=== PATIENT | female | born 1955 | race Caucasian/White ===

== ENCOUNTER 2017-07-01 10:14 | Observation (INO) | payer MEDICARE ==
[~2017-07-01] VITALS: Ht 167.6 cm; Wt 86.0 kg
[~2017-07-01 10:14] MED LIST: ACTONEL; ACTOS; ASPIR 8181 M1 PO; B-121000 MCG; BENADRYL25 M3 PO; CALCIUM600 MG; CYMBALTA20 M1 PO; CYMBALTA30 M1 PO; DILAUDID2 M1 PO; FOLIC ACID1 MG; GLIPIZIDE ER5 MG PO; JANUVIA100 MG; KEFLEX500 MG PO; LORAZEPAM2 M1 PO; METFORMIN HCL850 MG; NEURONTIN300 MG; NITROFURANTOIN100 M3 PO; OMEPRAZOLE40 M2 PO; POTASSIUM CHLO10 ME2 PO; PROTONIX40 M1 PO; SYNTHROID100 MC1 PO; SYNTHROID25 MCG; SYNTHROID88 MC1 PO; TIZANIDINE HCL2 M2 PO; TRIAMTERENE-HC1 EAC1 PO; ULTRAM50 MG PO; VALACYCLOVIR1000 M1; VITAMIN B-12250 MC2 PO; VITAMIN D; VITAMIN D1000 UNI1; VITAMIN D1000 UNI3 PO; VITAMIN D50000 UNI2 PO; VYTORIN; WELLBUTRIN XL150 MG; XANAX0.5 M1 PO; XANAX0.5 MG; [UNRECOGNIZED DRUG - OTHER] PO
[2017-07-01 10:57] LABS: BASO % 0.4 % (0-2); EOS % 0.6 % (0-7); EOSINOPHIL ABSOLUTE COUNT 0.1 tho/cmm (0.0-0.7); HGB-HEMOGLOBIN 11.5 gm/dl (12.0-15.5); IMMATURE GRANULOCYTES ABSOLUTE 0.02 tho/cmm (0-0.03); IMMATURE GRANULOCYTES PERCENT 0.2 % (0-0.3); LYMPH % 27.4 % (20-45); LYMPH ABSOLUTE COUNT 2.3 tho/cmm (0.8-4.5); MCH (MEAN CORPUSCULAR HGB) 34.4 pg (28.0-32.0); MCHC MEAN CORPUSCULAR HGB CONC 34.8 % (32.0-36.0); MCV (MEAN CELL VOLUME) 98.8 fl (82.0-96.0); MEAN PLATELET VOLUME 9.2 cmc (9.4-12.4); MONO % 10.9 % (0-12); MONOCYTE ABSOLUTE COUNT 0.9 tho/cmm (0.0-1.2); NEUTROPHIL ABSOLUTE COUNT 5.2 tho/cmm (1.6-8.0); NEUTROPHIL-AUTOMATED 5.2 tho/cmm (1.6-8.0); NEUTROPHILS % 60.5 % (40-80); PLATELET COUNT 154 tho/cmm (150-450); RED BLOOD COUNT 3.34 mil/cmm (4.00-5.20); RED CELL DISTRIBUTION WIDTH 15.4 % (12.4-16.4); WHITE BLOOD COUNT 8.5 tho/cmm (4.0-10.0)
[2017-07-01 11:03] LABS: INR 1.1 INR (0.9-1.1); PROTHROMBIN TIME 13.3 SECONDS (9.0-13.6)
[2017-07-01 11:11] LABS: ALB/GLOB RATIO 0.9 (0.8-2.0); ALBUMIN 3.2 g/dl (3.5-5.0); ALCOHOL (ETOH) 15 mg/dl (<10); ALKALINE PHOSPHATASE 108 U/L (33-138); ALT/SGPT 20 U/L (12-78); ANION GAP 15 mmol/L (0-20); AST/SGOT 20 U/L (10-40); BILIRUBIN,DIRECT 0.4 mg/dl (0.0-0.3); BILIRUBIN,INDIRECT 0.7 mg/dL (0.0-1.0); BILIRUBIN,TOTAL 1.1 mg/dl (0-1.5); BLOOD UREA NITROGEN 8 mg/dl (6-24); CALCIUM 8.6 mg/dl (8.5-10.5); CARBON DIOXIDE-VENOUS 27 mmol/L (22-32); CHLORIDE 91 mmol/l (96-110); CREATININE 0.82 mg/dl (0.50-1.10); GLUCOSE 325 mg/dL (70-110); LIPASE 88 U/L (73-393); MAGNESIUM 1.5 mg/dl (1.8-2.6); POTASSIUM 3.6 mmol/L (3.7-5.1); SODIUM 129 mmol/L (135-145); eGFR VALUE FOR BLACK >90 mL/Min
[2017-07-01] MEDS ORDERED: LIDODERM1 EACH TD (11:20)
[2017-07-01] MEDS ORDERED: XANAX0.5 M1 PO (11:20)
[2017-07-01] MEDS ORDERED: TIZANIDINE HCL2 M2 PO (11:20)
[2017-07-01] MEDS ORDERED: POTASSIUM CHLO10 ME2 PO (11:57)
[2017-07-01 14:33] LABS: TSH-THYROID STIMULATING HORM. 1.72 uIU/ml (0.40-3.80)
[2017-07-01 14:42] LABS: ANION GAP 10 mmol/L (0-20); BLOOD UREA NITROGEN 9 mg/dl (6-24); CALCIUM 8.7 mg/dl (8.5-10.5); CARBON DIOXIDE-VENOUS 31 mmol/L (22-32); CHLORIDE 94 mmol/l (96-110); CREATININE 0.78 mg/dl (0.50-1.10); GLUCOSE 183 mg/dL (70-110); SODIUM 131 mmol/L (135-145); eGFR VALUE FOR BLACK >90 mL/Min
[2017-07-01 14:51] LABS: POTASSIUM 3.6 mmol/L (3.7-5.1)
[2017-07-02 00:39] LABS: URINE APPEARANCE SL CLOUDY; URINE BILIRUBIN NEGATIVE (NEG); URINE BLOOD MODERATE (NEG); URINE COLOR YELLOW; URINE GLUCOSE (UA) MODERATE (NEG); URINE KETONE NEGATIVE (NEG); URINE LEUKOCYTE ESTERASE POSITIVE (NEG); URINE NITRITE NEGATIVE (NEG); URINE PROTEIN MODERATE (NEG)
[2017-07-02 00:51] LABS: URINE AMORPHOUS 1+; URINE BACTERIA 1+; URINE RBC 0 /[HPF] (0-5); URINE WBC 40-50 /[HPF] (0-5)
[2017-07-02 06:14] LABS: ANION GAP 10 mmol/L (0-20); BLOOD UREA NITROGEN 10 mg/dl (6-24); CARBON DIOXIDE-VENOUS 31 mmol/L (22-32); CHLORIDE 98 mmol/l (96-110); CREATININE 0.85 mg/dl (0.50-1.10); GLUCOSE 200 mg/dL (70-110); MAGNESIUM 1.5 mg/dl (1.8-2.6); POTASSIUM 3.2 mmol/L (3.7-5.1); SODIUM 136 mmol/L (135-145); eGFR VALUE FOR BLACK 87 mL/Min
== END 2017-07-02 11:30 ==
LOC: EDMED 10:14 → EMR2 13:41 → 5WF 13:41
PROVIDERS: Emergency Medicine; Nurse Practitioner; ADMIT Family Medicine
PROC: 5A09357 Assistance with Respiratory Ventilation, Less than 24 Consecutive Hours, Continuous Positive Airway Pressure (ICD-10-PCS; principal; 2017-07-01)
DX: E86.0 Dehydration (principal); I95.9 Hypotension, unspecified; I11.9 Hypertensive heart disease without heart failure; E87.1 Hypo-osmolality and hyponatremia; E11.9 Type 2 diabetes mellitus without complications; E03.9 Hypothyroidism, unspecified; R00.1 Bradycardia, unspecified; K59.00 Constipation, unspecified; G47.33 Obstructive sleep apnea (adult) (pediatric); R55 Syncope and collapse; Z91.19 Patient's noncompliance with other medical treatment and regimen; Z87.891 Personal history of nicotine dependence; Z79.84 Long term (current) use of oral hypoglycemic drugs; Z79.899 Other long term (current) drug therapy; Z91.81 History of falling; F10.10 Alcohol abuse, uncomplicated
CPT/HCPCS: C8929; G0378; G0480; J1815; J7030